=== PATIENT | female | born 1965 | race African-American/Black ===

== ENCOUNTER 2019-08-10 15:31 | Inpatient (IN) | payer OTHER ==
[2019-08-10 17:16] VITALS: BMI 26.6
--- NOTE | 2019-08-10 18:44 | HP ---
CIWA Score Nausea/Vomitin-No Nausea/No Vomiting Muscle Tremors: 2 Anxiety: 4-Mod. Anxious/Guarded Agitation: 2 Paroxysmal Sweats: 1-Minimal Palms Moist Orientation: 1-Uncertain about Date Tacttile Disturbances: 0-None Auditory Disturbances: 0-None Visual Disturbances: 0-None Headache: 3-Moderate CIWA-Ar Total Score: 13 - Admission Criteria OASAS Guidelines: Admission for Medically Managed Detox: Requires at least one of the followin. CIWA greater than 12 2. Seizures within the past 24 hours 3. Delirium tremens within the past 24 hours 4. Hallucinations within the past 24 hours 5. Acute intervention needed for co occurring medical disorder 6. Acute intervention needed for co occurring psychiatric disorder 7. Severe withdrawal that cannot be handled at a lower level of care (continued vomiting, continued diarrhea, abnormal vital signs) requiring intravenous medication and/or fluids 8. Patient presents the following: CIWA greater than 12 Admission Criteria Met: Admission criteria met Admission ROS [facility] Chief Complaint: Carrie Miranda is a 53 year old female presenting for alcohol detox. Allergies/Adverse Reactions: Allergies Allergy/AdvReac Type Severity Reaction Status Date / Time erythromycin base Allergy Verified 08/10/19 17:02 History of Present Illness: Carrie Miranda is a 53 year old transgender male>female presenting for alcohol detox. Alcohol: Currently drinks 1-2 pints per day. Has been drinking since age 10. Used to drink more, up to a handle of hard alcohol. Last drink Saturday. Longest period of sobriety off/on for 10 year while imprisoned. Withdrawal symptoms: anxiety, tremors, irratability. Has a history of seizures, blackout, falls, head hits. Came from [facility], where she was briefly seen for a syncopal episode. Possible seizure. Currently on suboxone. Former IVDU heroin user, 5 years. Has been to detox program in the past, but not in the last year. Plans after detox: uncertain, possibility of rehab. Medical History: cirrhosis, seizure disorder, hx of subdural hematoma (most recent few months prior), hx of PNA, anemia, HIV (June+ CD4) (tx through [facility]) occasionally misses medication, hx of PCP PNA, Hypotension, DM, hx of colitis, Hep C, osteonecrosis of the L hip, asthma, ? CVA with some residual L sided weakness Psychiatric History: anxiety, depression Surgical History: hernia repairs, R hip arthroplasty (2013) Meds: on spironolactone (testosterone blockade), Lasix (fluid retention) Smoking: never Social: lives with (occasionally), lives in housing, occasionally sleeps in the street. Counseled on proper nutrition. Counseled on compliance with medications. Unclear plans after detox, will speak to counselor regarding options. Medications through pharmacy that was closed on intake. Need to be reconciled in the morning. Continued suboxone as was found through [facility]. Continued HIV medications. Exam Limitations: No Limitations - Ebola screening Have you traveled outside of the country in the last 21 days: No Have you had contact with anyone from an Ebola affected area: No Do you have a fever: No - Review of Systems Constitutional: Chills, Loss of Appetite, Changes in sleep EENT: reports: Other (rhinnorhea) Respiratory: reports: Cough, Wheezing Cardiac: reports: No Symptoms Reported GI: reports: Diarrhea : reports: No Symptoms Reported Musculoskeletal: reports: Joint Pain, Joint Stiffness Integumentary: reports: Dryness, Pruritus Neuro: reports: Headache, Tingling, Tremors Endocrine: reports: No Symptoms Reported Hematology: reports: No Symptoms Reported Psychiatric: reports: Orientated x3, Agitated, Anxious, Depressed Patient History - Patient Medical History Hx Anemia: Yes Hx Asthma: No Hx Chronic Obstructive Pulmonary Disease (COPD): No Hx Cancer: No Hx Cardiac Disorders: No Hx Congestive Heart Failure: No Hx Hypertension: No Hx Hypercholesterolemia: No Hx Pacemaker: No HX Cerebrovascular Accident: No Hx Seizures: Yes Hx Dementia: No Hx Diabetes: Yes Hx Gastrointestinal Disorders: Yes Hx Liver Disease: Yes Hx Genitourinary Disorders: No Hx Renal Disease (ESRD): No Hx Thyroid Disease: No Hx Human Immunodeficiency Virus (HIV): Yes (1996, last CD4 600+ in June 2019) Hx Hepatitis C: Yes Hx Depression: Yes Hx Suicide Attempt: Yes Hx Bipolar Disorder: No Hx Schizophrenia: No - Patient Surgical History Hx Neurologic Surgery: No Hx Cataract Extraction: No Hx Cardiac Surgery: No Hx Lung Surgery: No Hx Breast Surgery: No Hx Breast Biopsy: No Hx Abdominal Surgery: No Hx Appendectomy: No Hx Cholecystectomy: No Hx Genitourinary Surgery: No Hx Section: No Hx Orthopedic Surgery: Yes (R hip arthroplastry) Other Surgical History: bilateral hernia repair - PPD History Previous Implant?: No Documented Results: Negative w/o proof PPD to be Administered?: Yes - Smoking Cessation Smoking history: Never smoked - Substance & Tx. History Hx Alcohol Use: Yes Hx Substance Use: Yes Substance Use Type: Alcohol, Heroin - Substances abused Alcohol Substance route: Oral Frequency: Daily Amount used: 1 pint Age of first use: 10 Date of last use: 08/08/19 Admission Physical Exam S - Vital Signs Vital Signs: Vital Signs - 24 hr 08/10/19 17:00 Temperature 97.1 F L Pulse Rate 79 Respiratory 18 Rate Blood Pressure 130/89 - Physical General Appearance: Yes: No Apparent Distress, Appropriately Dressed, Moderate Distress HEENTM: Yes: EOMI, Normocephalic, Pharynx Normal, Scleral Ictenus R, Scleral Ictenus L Respiratory: Yes: Chest Non-Tender, Lungs Clear, Normal Breath Sounds, No Respiratory Distress, No Accessory Muscle Use Neck: Yes: No masses,lesions,Nodules, Trachea in good position Breast: Yes: Breast Exam Deferred Cardiology: Yes: Regular Rhythm, Regular Rate, S1, S2 Abdominal: Yes: Normal Bowel Sounds, Non Tender, Tenderness (mild tenderness throughout abdomen) Genitourinary: Yes: Within Normal Limits Back: Yes: Normal Inspection Musculoskeletal: Yes: Joint Stiffness (on R and L hip) Extremities: Yes: Normal Capillary Refill, Normal Range of Motion, Non-Tender, Other (scattered excoriations) Neurological: Yes: boston cutter II-XII NML intact, Fully Oriented, Alert, Normal Mood/ Affect, Normal Response, Other (4/5 strength on the L upper extremity. All other 5/5) Integumentary: Yes: Normal Color, Dry, Warm - Diagnostic (1) Alcohol abuse Current Visit: Yes Status: Acute (2) Buprenorphine dependence Current Visit: Yes Status: Acute (3) HIV (human immunodeficiency virus infection) Current Visit: Yes Status: Acute (4) Hepatitis C Current Visit: Yes Status: Acute (5) Asthma Current Visit: Yes Status: Acute (6) Depression Current Visit: Yes Status: Acute (7) Anxiety Current Visit: Yes Status: Acute (8) Hypotension Current Visit: Yes Status: Acute (9) Seizure disorder Current Visit: Yes Status: Acute (10) Cirrhosis Current Visit: Yes Status: Acute Cleared for Admission [facility] - Detox or Rehab [facility] Level of Care: Medically Managed Detox Regimen/Protocol: Not Applicable (Ativan protocol 2/ cirrhosis) Breathalyzer - Breathalyzer Breathalyzer: 0 Urine Drug Screen - Test Device Lot number: [id number] Expiration date: 04/10/21 - Control Is test valid?: Yes - Results Drug screen NEGATIVE: Yes Urine drug screen results: BZO-Benzodiazepines, BUP-Suboxone Inpatient Rehab Admission - Rehab Decision to Admit Inpatient rehab admission?: No
[2019-08-10] MEDS ORDERED: LORazepam 1 MG TABLET PO PRN (19:42)
[2019-08-10] MEDS ORDERED: MENTHOL/PHENOL 1 EACH UD MM PRN (19:42)
[2019-08-10] MEDS ORDERED: MAGNESIUM HYDROX 2400MG/30ML ORAL SUSPENSION 30 ML CUP PO PRN (19:42)
[2019-08-10] MEDS ORDERED: METHOCARBAMOL 500 MG TABLET PO PRN (19:42)
[2019-08-10] MEDS ORDERED: ACETAMINOPHEN 325 MG TABLET (FP) PO PRN ×2 (19:42)
[2019-08-10] MEDS ORDERED: MELATONIN 5 MG TABLETS PO PRN (19:42)
[2019-08-10] MEDS ORDERED: IBUPROFEN 400 MG TABLET (FP) PO PRN (19:42)
[2019-08-10] MEDS ORDERED: MAGNESIUM CITRATE 300 ML BOTTLE PO PRN (19:42)
[2019-08-10] MEDS ORDERED: BISMUTH SUBSALICYLATE 524 MG/30 ML UD PO PRN (19:42)
[2019-08-10] MEDS ORDERED: MAG HYDROX/AL HYDROX/SIMETH 30 ML UNIT-DOSE CUP PO PRN (19:42)
[2019-08-10] MEDS ORDERED: ALBUTEROL SO4 8 GM HFA INHALER IH PRN (19:44)
--- NOTE | 2019-08-10 19:46 | PN ---
Teaching Attending Note Name of Resident: Jaleel Harrell ATTENDING PHYSICIAN STATEMENT I saw and evaluated the patient. I reviewed the resident's note and discussed the case with the resident. I agree with the resident's findings and plan as documented. SUBJECTIVE: 53 yo transgender M>F, HIV pos, seizures, ? cirrhosis, prediabetic, here for alcohol detox. Was seen at [facility] last night. OBJECTIVE: Vital Signs - 24 hr 08/10/19 17:00 Temperature 97.1 F L Pulse Rate 79 Respiratory 18 Rate Blood Pressure 130/89 tremulous alert and oriented ASSESSMENT AND PLAN: Alcohol Use Disorder: ativan detox protocol Female hormones keppra for seizures
[2019-08-10] MEDS: LORazepam 2 MG TABLET PO SCH (22:30)
[2019-08-10] MEDS: THIAMINE HCL 100 MG TABLET (FP) PO SCH (22:30)
--- NOTE | 2019-08-10 23:14 | PN ---
[facility] Progress Note Note: Reviewed patient's Suboxone. Will modify orders to reflect what is on the PDMP. Patient Name: Carrie Miranda Date: 1965 Address: [address] [place] [address] Sex: Female Rx Written Rx Dispensed Drug Quantity Days Supply Prescriber Name 07/29/2019 07/29/2019 buprenorphine-naloxone 8-2 mg sl film 90 30 Harinder Boyce, Stephen 07/29/2019 07/29/2019 zolpidem tartrate 10 mg tablet 30 30 Harinder Boyce, Godwinp 06/17/2019 06/17/2019 zolpidem tartrate 10 mg tablet 30 30 Harinder Boyce, Godwinp 06/17/2019 06/17/2019 suboxone 8 mg-2 mg sl film 90 30 Harinder Boyce, Godwinp 06/05/2019 06/05/2019 suboxone 8 mg-2 mg sl film 45 15 Harinder Boyce, GEOGRAPHIC INFORMATION SYSTEM ANALYST 06/05/2019 06/05/2019 zolpidem tartrate 10 mg tablet 15 15 Harinder Boyce, GEOGRAPHIC INFORMATION SYSTEM ANALYST 05/06/2019 05/08/2019 suboxone 8 mg-2 mg sl film 90 30 Harinder Boyce, GEOGRAPHIC INFORMATION SYSTEM ANALYST 05/06/2019 05/08/2019 zolpidem tartrate 10 mg tablet 30 30 Harinder Boyce, GEOGRAPHIC INFORMATION SYSTEM ANALYST 04/10/2019 04/10/2019 zolpidem tartrate 10 mg tablet 30 30 Harinder Boyce, GEOGRAPHIC INFORMATION SYSTEM ANALYST 04/10/2019 04/10/2019 suboxone 8 mg-2 mg sl film 90 30 Harinder Boyce, GEOGRAPHIC INFORMATION SYSTEM ANALYST 03/11/2019 03/11/2019 zolpidem tartrate 10 mg tablet 30 30 Harinder Boyce, GEOGRAPHIC INFORMATION SYSTEM ANALYST 03/11/2019 03/11/2019 suboxone 8 mg-2 mg sl film 90 30 Harinder Boyce, GEOGRAPHIC INFORMATION SYSTEM ANALYST 02/13/2019 02/27/2019 suboxone 8 mg-2 mg sl film 45 15 Harinder Boyce, GEOGRAPHIC INFORMATION SYSTEM ANALYST 01/28/2019 01/28/2019 suboxone 8 mg-2 mg sl film 90 30 Harinder Boyce, GEOGRAPHIC INFORMATION SYSTEM ANALYST 01/28/2019 01/28/2019 zolpidem tartrate 10 mg tablet 30 30 Harinder Boyce, CASSANDRA 12/30/2018 12/30/2018 zolpidem tartrate 10 mg tablet 30 30 Harinder Boyce, CASSANDRA 12/30/2018 12/30/2018 suboxone 8 mg-2 mg sl film 90 30 Harinder Boyce, CASSANDRA 12/11/2018 12/11/2018 suboxone 8 mg-2 mg sl film 21 7 Akira Coleman M D 12/11/2018 12/11/2018 zolpidem tartrate 10 mg tablet 7 7 Akira Coleman M D 12/11/2018 12/11/2018 alprazolam 0.25 mg tablet 30 30 Akira Coleman M D 11/10/2018 11/14/2018 zolpidem tartrate 10 mg tablet 30 30 Harinder Boyce, CASSANDRA 11/10/2018 11/14/2018 alprazolam 0.25 mg tablet 30 30 Harinder Boyce, CASSANDRA 11/14/2018 11/14/2018 suboxone 8 mg-2 mg sl film 90 30 Harinder Boyce, CASSANDRA 10/08/2018 10/16/2018 zolpidem tartrate 10 mg tablet 30 30 Harinder Boyce, CASSANDRA 10/08/2018 10/16/2018 alprazolam 0.25 mg tablet 30 30 Harinder Boyce, CASSANDRA 10/08/2018 10/16/2018 suboxone 8 mg-2 mg sl film 90 30 Harinder Boyce CRNP 09/18/2018 09/19/2018 zolpidem tartrate 10 mg tablet 30 30 AlonsoTong baez ) 09/18/2018 09/19/2018 alprazolam 0.25 mg tablet 30 30 AlonsoTong baez) 09/18/2018 09/19/2018 suboxone 8 mg-2 mg sl film 90 30 Tong Gupta) 08/20/2018 08/20/2018 alprazolam 0.25 mg tablet 30 30 AlonsoTong pantoja) 08/20/2018 08/20/2018 suboxone 8 mg-2 mg sl film 90 30 AlonsoTong baez) 08/20/2018 08/20/2018 zolpidem tartrate 10 mg tablet 30 30 AlonsoTong baez ) Patient Name: Carrie Miranda Date: 1965 Address: [address] [place] [address] Sex: Female Rx Written Rx Dispensed Drug Quantity Days Supply Prescriber Name 07/24/2019 07/24/2019 buprenorphine-naloxone 8-2 mg sl tablet 42 14 Haja Pretty)
[2019-08-10] MEDS: BUPRENORPHINE/NALOXONE 8 MG/2 MG FILM PACKET SL SCH (23:26)
[2019-08-11] MEDS: BUPRENORPHINE/NALOXONE 8 MG/2 MG FILM PACKET SL SCH ×3 (05:43→21:59)
[2019-08-11] MEDS: LORazepam 2 MG TABLET PO SCH ×4 (05:43→21:59)
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
--- NOTE | 2019-08-11 10:14 | EKG ---
Test Reason : Blood Pressure : / mmHG Vent. Rate : 082 BPM Atrial Rate : 082 BPM P-R Int : 168 ms QRS Dur : 088 ms QT Int : 386 ms P-R-T Axes : 057 -26 -17 degrees QTc Int : 450 ms SINUS RHYTHM WITH FUSION COMPLEXES CANNOT RULE OUT ANTERIOR INFARCT , AGE UNDETERMINED ABNORMAL ECG Confirmed by Jamal Naqvi MD ([id number]) on 08/11/2019 10:13:52 AM Referred By: Confirmed By:Jamal Naqvi MD
--- NOTE | 2019-08-11 10:14 | EKG ---
Test Reason : Blood Pressure : / mmHG Vent. Rate : 070 BPM Atrial Rate : 070 BPM P-R Int : 178 ms QRS Dur : 092 ms QT Int : 410 ms P-R-T Axes : 067 -20 -15 degrees QTc Int : 442 ms SINUS RHYTHM WITH PREMATURE ATRIAL COMPLEXES WITH ABERRANT CONDUCTION OTHERWISE NORMAL ECG NO PREVIOUS ECGS AVAILABLE Confirmed by Jamal Naqvi MD ([id number]) on 08/11/2019 10:14:07 AM Referred By: Confirmed By:Jamal Naqvi MD
[2019-08-11] MEDS: PRENATAL VITAMINS W/ FOLIC ACID TABLET (FP) PO SCH (10:36)
[2019-08-11] MEDS: FLUoxetine HCL 20 MG CAPSULE (FP) PO SCH (10:37)
[2019-08-11] MEDS: hydrOXYzine PAMOATE 25 MG CAPSULE (FP) PO PRN (10:37)
[2019-08-11] MEDS: BICTEGRAV/EMTRICIT/TENOFOV (BIKTARVY) 50-200-25 MG TABLET PO SCH (11:23)
[2019-08-11 12:15] LABS: HEMATOCRIT 29.7 % (32.4-45.2); HEMOGLOBIN 10.4 GM/dL (10.7-15.3); MCH 34.1 pg (25.7-33.7); MEAN CELL VOLUME 97.5 fl (80-96); MEAN PLT VOLUME 9.4 fl (7.5-11.1); PLATELET COUNT 209 K/MM3 (134-434); RBC 3.04 M/mm3 (3.60-5.2); RDW 15.7 % (11.6-15.6); WHITE BLOOD COUNT 5.5 K/mm3 (4.0-10.0)
[2019-08-11 12:49] LABS: ALBUMIN 3.7 g/dl (3.4-5.0); BILIRUBIN,TOTAL 0.5 mg/dL (0.2-1); BLOOD UREA NITROGEN 6.7 mg/dL (7-18); CALCIUM 8.5 mg/dL (8.5-10.1); CREATININE 1.7 mg/dL (0.55-1.3); POTASSIUM 4.1 mmol/L (3.5-5.1); TOT PROT 8.2 g/dl (6.4-8.2)
--- NOTE | 2019-08-11 13:06 | PN ---
[facility] CIWA - CIWA Score Nausea/Vomitin-No Nausea/No Vomiting Muscle Tremors: 3 Anxiety: 2 Agitation: 3 Paroxysmal Sweats: 2 Orientation: 0-Oriented Tacttile Disturbances: 0-None Auditory Disturbances: 0-None Visual Disturbances: 0-None Headache: 0-None Present CIWA-Ar Total Score: 10 [facility] Progress Note (SOAP) Subjective: chronic hip pain sweats shakes irritable tired Objective: 08/11/19 13:05 Vital Signs Temperature 97.9 F 08/11/19 09:49 Pulse Rate 81 08/11/19 09:49 Respiratory Rate 18 08/11/19 09:49 Blood Pressure 99/65 08/11/19 09:49 O2 Sat by Pulse Oximetry (%) Laboratory Tests 08/10/19 08/11/19 08/11/19 23:18 05:42 08:45 WBC 5.5 RBC 3.04 L Hgb 10.4 L Hct 29.7 L MCV 97.5 H MCH 34.1 H MCHC 35.0 RDW 15.7 H Plt Count 209 MPV 9.4 Sodium Potassium Chloride Carbon Dioxide Anion Gap BUN Creatinine Est GFR (CKD-EPI)AfAm Est GFR (CKD-EPI)NonAf POC Glucometer 123 109 Random Glucose Calcium Total Bilirubin AST ALT Alkaline Phosphatase Total Protein Albumin 08/11/19 08:45 WBC RBC Hgb Hct MCV MCH MCHC RDW Plt Count MPV Sodium 138 Potassium 4.1 Chloride 105 Carbon Dioxide 25 Anion Gap 8 BUN 6.7 L Creatinine 1.7 H Est GFR (CKD-EPI)AfAm 38.67 Est GFR (CKD-EPI)NonAf 33.36 POC Glucometer Random Glucose 102 Calcium 8.5 Total Bilirubin 0.5 AST 82 H ALT 65 H Alkaline Phosphatase 101 Total Protein 8.2 Albumin 3.7 labs noted elevated liver enzymes lowe H:H; iron supplement ordered aaox3 ambulating no acute distress Assessment: 08/11/19 13:07 withdrawal sx Plan: continue detox increase fluids analgesic balm ordered lidocaine patch muscle relaxant prn iron supplement d/c tylenol
[2019-08-11 13:22] LABS: SICKLE CELL SCREEN NEGATIVE (NEGATIVE)
[2019-08-11] MEDS: FERROUS SO4 325 MG TABLET (FP) PO SCH ×2 (14:25→21:58)
[2019-08-11] MEDS: LIDOCAINE 5% TOPICAL PATCH TP SCH (14:25)
[2019-08-11] MEDS ORDERED: FERROUS SO4 325 MG TABLET (FP) ONE (19:53)
[2019-08-11] MEDS: METHYL SALICYLATE/MENTHOL OINT 30 GM TUBE TP SCH (21:58)
[2019-08-11] MEDS: LIDOCAINE PATCH REMOVAL MC SCH (21:59)
[2019-08-11] MEDS: THIAMINE HCL 100 MG TABLET (FP) PO SCH (21:59)
[2019-08-11] MEDS: SUVOREXANT 10 MG TABLET PO PRN (22:01)
[2019-08-12] MEDS: LORazepam 1 MG TABLET PO SCH ×4 (05:26→22:19)
[2019-08-12] MEDS: BUPRENORPHINE/NALOXONE 8 MG/2 MG FILM PACKET SL SCH ×3 (05:26→21:50)
[2019-08-12] MEDS: LIDOCAINE 5% TOPICAL PATCH TP SCH (10:11)
[2019-08-12] MEDS: PRENATAL VITAMINS W/ FOLIC ACID TABLET (FP) PO SCH (10:11)
[2019-08-12] MEDS: FERROUS SO4 325 MG TABLET (FP) PO SCH ×2 (10:11→21:50)
[2019-08-12] MEDS: BICTEGRAV/EMTRICIT/TENOFOV (BIKTARVY) 50-200-25 MG TABLET PO SCH (10:11)
[2019-08-12] MEDS: FLUoxetine HCL 20 MG CAPSULE (FP) PO SCH (10:11)
[2019-08-12] MEDS: hydrOXYzine PAMOATE 25 MG CAPSULE (FP) PO PRN ×2 (10:11→17:14)
[2019-08-12] MEDS: METHYL SALICYLATE/MENTHOL OINT 30 GM TUBE TP SCH ×2 (10:32→22:19)
--- NOTE | 2019-08-12 10:56 | PN ---
S CIWA - CIWA Score Nausea/Vomitin-No Nausea/No Vomiting Muscle Tremors: 3 Anxiety: 2 Agitation: 1-Slight > Activity Paroxysmal Sweats: 1-Minimal Palms Moist Orientation: 0-Oriented Tacttile Disturbances: 0-None Auditory Disturbances: 0-None Visual Disturbances: 0-None Headache: 0-None Present CIWA-Ar Total Score: 7 [facility]HS Progress Note (SOAP) Subjective: anxiety sweats restless Objective: 08/12/19 10:55 Vital Signs Temperature 98.1 F 08/12/19 09:24 Pulse Rate 75 08/12/19 09:24 Respiratory Rate 18 08/12/19 09:24 Blood Pressure 104/62 08/12/19 09:24 O2 Sat by Pulse Oximetry (%) Laboratory Tests 08/10/19 08/11/19 08/11/19 23:18 05:42 08:45 WBC 5.5 RBC 3.04 L Hgb 10.4 L Hct 29.7 L MCV 97.5 H MCH 34.1 H MCHC 35.0 RDW 15.7 H Plt Count 209 MPV 9.4 Sickle Cell Screen Negative Sodium Potassium Chloride Carbon Dioxide Anion Gap BUN Creatinine Est GFR (CKD-EPI)AfAm Est GFR (CKD-EPI)NonAf POC Glucometer 123 109 Random Glucose Calcium Total Bilirubin AST ALT Alkaline Phosphatase Total Protein Albumin RPR Titer 08/11/19 08/11/19 08/11/19 08:45 08:45 16:20 WBC RBC Hgb Hct MCV MCH MCHC RDW Plt Count MPV Sickle Cell Screen Sodium 138 Potassium 4.1 Chloride 105 Carbon Dioxide 25 Anion Gap 8 BUN 6.7 L Creatinine 1.7 H Est GFR (CKD-EPI)AfAm 38.67 Est GFR (CKD-EPI)NonAf 33.36 POC Glucometer 97 Random Glucose 102 Calcium 8.5 Total Bilirubin 0.5 AST 82 H ALT 65 H Alkaline Phosphatase 101 Total Protein 8.2 Albumin 3.7 RPR Titer Nonreactive 08/11/19 08/12/19 21:55 07:03 WBC RBC Hgb Hct MCV MCH MCHC RDW Plt Count MPV Sickle Cell Screen Sodium Potassium Chloride Carbon Dioxide Anion Gap BUN Creatinine Est GFR (CKD-EPI)AfAm Est GFR (CKD-EPI)NonAf POC Glucometer 108 94 Random Glucose Calcium Total Bilirubin AST ALT Alkaline Phosphatase Total Protein Albumin RPR Titer labs noted aaox3 ambulating no acute distress Assessment: 08/12/19 10:55 withdrawals sx Plan: continue detox increase fluids
[2019-08-12] MEDS: THIAMINE HCL 100 MG TABLET (FP) PO SCH (21:50)
[2019-08-12] MEDS: SUVOREXANT 10 MG TABLET PO PRN (21:51)
[2019-08-12] MEDS: LIDOCAINE PATCH REMOVAL MC SCH (22:20)
[2019-08-13] MEDS ORDERED: LORazepam 0.5 MG TABLET PO PRN
[2019-08-13] MEDS: LORazepam 0.5 MG TABLET PO SCH ×2 (06:23→10:35)
[2019-08-13] MEDS: BUPRENORPHINE/NALOXONE 8 MG/2 MG FILM PACKET SL SCH (06:23)
[2019-08-13 09:54] VITALS: BP 119/80; PULSE 16; TEMP 98.6
--- NOTE | 2019-08-13 10:09 | PN ---
[facility] COWS - Scale Resting Pulse: 0= TN 80 or Below Sweatin= Chills/Flushing Restless Observation: 1= Difficult to Sit Still Pupil Size: 0= Normal to Room Light Bone or Joint Aches: 1= Mild Discomfort Runny Nose/ Eye Tearin= None GI Upset > 30mins: 0= None Tremor Observation of Outstretched Hands: 0= None Yawning Observation: 0= None Anxiety or Irritability: 0= None Goose Flesh Skin: 0=Smooth Skin COWS Score: 3 BHS Progress Note (SOAP) Subjective: sweats anxiety Objective: 08/13/19 10:07 Vital Signs Temperature 98.6 F 08/13/19 09:49 Pulse Rate 16 L 08/13/19 09:49 Respiratory Rate 75 H 08/13/19 09:49 Blood Pressure 119/80 08/13/19 09:49 O2 Sat by Pulse Oximetry (%) aaox3 ambulating no acute distress Assessment: 08/13/19 10:08 mild withdrawals Plan: continue detox d/c in am
[2019-08-13] MEDS: PRENATAL VITAMINS W/ FOLIC ACID TABLET (FP) PO SCH (10:35)
[2019-08-13] MEDS: BICTEGRAV/EMTRICIT/TENOFOV (BIKTARVY) 50-200-25 MG TABLET PO SCH (10:35)
[2019-08-13] MEDS: FERROUS SO4 325 MG TABLET (FP) PO SCH (10:35)
[2019-08-13] MEDS: FLUoxetine HCL 20 MG CAPSULE (FP) PO SCH (10:35)
[2019-08-13] MEDS: LIDOCAINE 5% TOPICAL PATCH TP SCH (10:36)
[2019-08-13] MEDS: METHYL SALICYLATE/MENTHOL OINT 30 GM TUBE TP SCH (10:36)
[2019-08-13] MEDS: hydrOXYzine PAMOATE 25 MG CAPSULE (FP) PO PRN (10:39)
--- NOTE | 2019-08-13 12:42 | DS ---
[facility] Detox Discharge Summary Admission Date: 08/10/19 Discharge Date: 08/13/19 - History Present History: Alcohol Dependence - Physical Exam Results Vital Signs: Vital Signs Temperature 98.6 F 08/13/19 09:49 Pulse Rate 16 L 08/13/19 09:49 Respiratory Rate 75 H 08/13/19 09:49 Blood Pressure 119/80 08/13/19 09:49 O2 Sat by Pulse Oximetry (%) Pertinent Admission Physical Exam Findings: [place] [facility] [place] Laboratory Tests 08/10/19 08/11/19 08/11/19 23:18 05:42 08:45 WBC 5.5 RBC 3.04 L Hgb 10.4 L Hct 29.7 L MCV 97.5 H MCH 34.1 H MCHC 35.0 RDW 15.7 H Plt Count 209 MPV 9.4 Sickle Cell Screen Negative Sodium Potassium Chloride Carbon Dioxide Anion Gap BUN Creatinine Est GFR (CKD-EPI)AfAm Est GFR (CKD-EPI)NonAf POC Glucometer 123 109 Random Glucose Calcium Total Bilirubin AST ALT Alkaline Phosphatase Total Protein Albumin RPR Titer 08/11/19 08/11/19 08/11/19 08:45 08:45 16:20 WBC RBC Hgb Hct MCV MCH MCHC RDW Plt Count MPV Sickle Cell Screen Sodium 138 Potassium 4.1 Chloride 105 Carbon Dioxide 25 Anion Gap 8 BUN 6.7 L Creatinine 1.7 H Est GFR (CKD-EPI)AfAm 38.67 Est GFR (CKD-EPI)NonAf 33.36 POC Glucometer 97 Random Glucose 102 Calcium 8.5 Total Bilirubin 0.5 AST 82 H ALT 65 H Alkaline Phosphatase 101 Total Protein 8.2 Albumin 3.7 RPR Titer Nonreactive 08/11/19 08/12/19 08/12/19 21:55 07:03 16:41 WBC RBC Hgb Hct MCV MCH MCHC RDW Plt Count MPV Sickle Cell Screen Sodium Potassium Chloride Carbon Dioxide Anion Gap BUN Creatinine Est GFR (CKD-EPI)AfAm Est GFR (CKD-EPI)NonAf POC Glucometer 108 94 101 Random Glucose Calcium Total Bilirubin AST ALT Alkaline Phosphatase Total Protein Albumin RPR Titer 08/12/19 08/13/19 21:47 07:49 WBC RBC Hgb Hct MCV MCH MCHC RDW Plt Count MPV Sickle Cell Screen Sodium Potassium Chloride Carbon Dioxide Anion Gap BUN Creatinine Est GFR (CKD-EPI)AfAm Est GFR (CKD-EPI)NonAf POC Glucometer 106 113 Random Glucose Calcium Total Bilirubin AST ALT Alkaline Phosphatase Total Protein Albumin RPR Titer pt is aaox3 ambulating no acute distress no s/s of withdrawals - Treatment Hospital Course: Detox Protocol Followed, Detoxed Safely, Responded well, Discharged Condition Good, Rehab Referral Accepted Patient has Accepted a Rehab Referral to: declined rehab; referral provided - Medication Discharge Medications: Ambulatory Orders Albuterol Sulfate Inhaler - [Ventolin Hfa Inhaler -] 1 - 2 inh PO Q4H 08/10/19 Bictegrav/Emtricit/Tenofov Ala [Biktarvy 50-200-25 mg Tablet] 1 each PO DAILY Buprenorphine HCl/Naloxone HCl [Suboxone 8 mg-2 mg Sl Tablets] 1 each SL TID Fluoxetine HCl [Prozac] 40 mg PO DAILY 08/10/19 Furosemide [Lasix] 20 mg PO DAILY 08/10/19 Gabapentin 300 mg PO DAILY 08/10/19 Spironolactone 50 mg PO BID 08/10/19 Zolpidem Tartrate [Ambien] 10 mg PO HS 08/10/19 hydrOXYzine PAMOATE [Vistaril -] 25 mg PO TID 08/10/19 - Diagnosis (1) Alcohol-induced sleep disorder Current Visit: Yes Status: Acute (2) Anxiety Current Visit: Yes Status: Acute (3) Buprenorphine dependence Current Visit: Yes Status: Chronic (4) Depression Current Visit: Yes Status: Chronic (5) Uncomplicated alcohol dependence Current Visit: Yes Status: Acute (6) Anemia Current Visit: Yes Status: Chronic (7) Asthma Current Visit: Yes Status: Chronic (8) Cirrhosis Current Visit: Yes Status: Chronic Qualifiers: Hepatic cirrhosis type: alcoholic cirrhosis Ascites presence: unspecified Qualified Code(s): K70.30 - Alcoholic cirrhosis of liver without ascites (9) HIV (human immunodeficiency virus infection) Current Visit: Yes Status: Chronic Qualifiers: HIV symptom status: unspecified Qualified Code(s): B20 - Human immunodeficiency virus [HIV] disease (10) Hepatitis C Current Visit: Yes Status: Chronic Qualifiers: Viral hepatitis chronicity: chronic Hepatic coma status: without hepatic coma Qualified Code(s): B18.2 - Chronic viral hepatitis C (11) MDD (major depressive disorder), recurrent episode, moderate Current Visit: Yes Status: Chronic (12) Seizure disorder Current Visit: Yes Status: Chronic - AMA Did Patient Leave Against Medical Advice: No
[2019-08-14] MEDS ORDERED: LORazepam 0.5 MG TABLET PO ONE (05:00)
== END 2019-08-13 12:50 | disposition home or self-care (01) | DRG 897 ==
LOC: YASAS 15:31 → Y6N 20:01
PROVIDERS: ADMIT Surgery; ATTEND Surgery
PROC: HZ2ZZZZ Detoxification Services for Substance Abuse Treatment (ICD-10-PCS; principal; 2019-08-10)
DX: F10.230 Alcohol dependence with withdrawal, uncomplicated (principal); F11.20 Opioid dependence, uncomplicated; F33.1 Major depressive disorder, recurrent, moderate; I69.354 Hemiplegia and hemiparesis following cerebral infarction affecting left non-dominant side; F10.282 Alcohol dependence with alcohol-induced sleep disorder; F41.9 Anxiety disorder, unspecified; F64.0 Transsexualism; I95.9 Hypotension, unspecified; D64.9 Anemia, unspecified; J45.909 Unspecified asthma, uncomplicated; K70.30 Alcoholic cirrhosis of liver without ascites; Z21 Asymptomatic human immunodeficiency virus [HIV] infection status; B18.2 Chronic viral hepatitis C; R94.5 Abnormal results of liver function studies; E11.9 Type 2 diabetes mellitus without complications; G40.909 Epilepsy, unspecified, not intractable, without status epilepticus; G25.1 Drug-induced tremor; Z88.1 Allergy status to other antibiotic agents; Z87.890 Personal history of sex reassignment
CPT/HCPCS: 36415; 80053; 82962; 85027; 85660; 86593; 93005; 93010